=== PATIENT | male | born 1995 | race Asian ===

== ENCOUNTER 2020-08-24 02:16 | Emergency (ER) | payer MEDICAID ==
[~2020-08-24] VITALS: Ht 180.3 cm; Wt 100.0 kg
[2020-08-24] MEDS ORDERED: POVIDONE-IODINE 10% 15 ML SOLUTION UD TP ONE (03:15)
[2020-08-24] MEDS ORDERED: LIDOCAINE 1% 10 ML VIAL PERC ONE (03:15)
[2020-08-24] MEDS ORDERED: CEPHALEXIN MONOHYDRATE 500 MG CAPSULE PO ONE (03:30)
[2020-08-24 03:41] VITALS: BP 148/80
== END 2020-08-24 03:47 | disposition home or self-care (01) ==
LOC: EMS 02:19
DX: L03.012 Cellulitis of left finger (principal)
CPT/HCPCS: 10060; 99283; J3490